=== PATIENT | female | born 1960 | race Caucasian/White ===

== ENCOUNTER 2022-05-11 08:04 | Outpatient (CLI) | payer OTHER, SELFPAY | END 2022-05-11 08:05 | disposition home or self-care (01) | LOC: ANHBWCAUD 08:04 | PROVIDERS: PCP Physician Assistant; Visit Provider Physician Assistant | DX: H90.3 Sensorineural hearing loss, bilateral (principal) | CPT/HCPCS: 92557; 92567 ==